=== PATIENT | female | born 1970 | race Caucasian/White ===

== ENCOUNTER 2016-09-04 12:54 | Emergency (ER) | payer MEDICAID ==
[~2016-09-04] VITALS: Ht 165.1 cm; Wt 71.2 kg
[2016-09-04 13:30] VITALS: BP 161/101
[2016-09-04] MEDS ORDERED: DIPHTH,PERTUSS(ACELL),TET TOX 0.5 ML DISP.SYRIN. VAX IM ONE (13:30)
[2016-09-04 13:44] LABS: BASO % 0 % (0-3); EOS % 1 % (0-3); HEMATOCRIT 38.5 % (36.0-47.0); LYMPH # 2.2 x10^3/uL (1.0-4.8); LYMPH % 35 % (24-48); MEAN CORPUSCULAR HEMOGLOBIN 31 pg (25-35); MEAN CORPUSCULAR HGB CONC 34 g/dL (31-37); MEAN CORPUSCULAR VOLUME 91 fL (79-100); MONO % 8 % (0-9); NEUT % 56 % (31-73); PLATELET COUNT 146 x10^3/uL (140-400); RED BLOOD COUNT 4.22 x10^6/uL (3.50-5.40); RED CELL DISTRIBUTION WIDTH 13.1 % (11.5-14.5); WHITE BLOOD COUNT 6.1 x10^3/uL (4.0-11.0)
[2016-09-04 13:49] LABS: CALCIUM 8.9 mg/dL (8.5-10.1); CREATININE 0.8 mg/dL (0.6-1.0); GFR 77.2; POTASSIUM 4.1 mmol/L (3.5-5.1)
[2016-09-04 13:53] LABS: ALBUMIN 3.7 g/dL (3.4-5.0); DIRECT BILIRUBIN 0.1 mg/dL (0.0-0.2); MAGNESIUM 1.9 mg/dL (1.8-2.4); TOTAL BILIRUBIN 0.2 mg/dL (0.2-1.0); TOTAL PROTEIN 7.5 g/dL (6.4-8.2)
[2016-09-04 14:00] LABS: CKMB INDEX 0.9 % (0-4)
--- NOTE | 2016-09-04 14:05 | RAD ---
Chest, 2 views, 09/04/2016: History: Shortness of breath, chest pain The heart size and pulmonary vascularity are normal. No pulmonary infiltrates are seen. There is no evidence of pleural fluid. IMPRESSION: No acute cardiopulmonary abnormality is detected.
--- NOTE | 2016-09-04 14:24 | PHYS DOC ---
Past Medical History Past Medical History: Hepatitis, Other Additional Past Medical Histor: hep c Past Surgical History: Appendectomy, Alcohol Use: None Drug Use: Methamphetamine Adult General Chief Complaint Chief Complaint: CHEST PAIN HPI HPI Patient is a 46 year old female brought to the ED by his significant other. The patient states that she had been using IV methamphetamine up until 2 days ago. She quit 2 days ago and believes she is having some withdrawal symptoms. She had plans to enter a treatment program and they are requesting that she be seen for medical clearance because of her symptoms. The patient feels anxious and her heart races at times. When her heart races, she feels short of air, also when she walks up stairs sometimes. She has had sticking pains in the left side of her chest and in her back sometimes worse with breathing. She's also had a generalized chest heaviness off and on for 1-2 days but mostly constant. She does smoke cigarettes. She's had no fever or chills. Not much cough. No nausea or diaphoresis. PCP none Review of Systems Review of Systems Constitutional: Denies fever or chills [] Eyes: Denies change in visual acuity, redness, or eye pain [] HENT: Denies nasal congestion or sore throat [] Respiratory: As in history of present illness Cardiovascular: As in history of present illness GI: Denies abdominal pain, nausea, vomiting, bloody stools or diarrhea [] : Denies dysuria or hematuria , denies Musculoskeletal: Denies back pain or joint pain [] Integument: Denies rash or skin lesions [] Neurologic: Denies headache, focal weakness or sensory changes [] Current Medications Current Medications Current Medications Medications (Trade) Dose Ordered Sig/Mckenzie Start Time Stop Time Status Last Admin Dose Admin Diphtheria/ Tetanus/Acell Pertussis (Boostrix) 0.5 ml ONCE ONCE 09/04/16 13:30 09/04/16 13:32 DC Allergies Allergies Allergies Coded Allergies Type Severity Reaction Last Updated Verified No Known Drug Allergies 09/04/16 No Physical Exam Physical Exam Constitutional: Well developed, well nourished, no acute distress, non-toxic appearance. Alert, mentating normally, does appear slightly anxious but not overly so. HENT: Normocephalic, atraumatic, bilateral external ears normal, nose normal. [] Eyes: conjunctiva normal, no discharge. [] Neck: Normal range of motion, no stridor. [] Cardiovascular:Heart rate regular rhythm, no murmur [] Lungs & Thorax: Bilateral breath sounds clear to auscultation , good bilateral equal breath sounds present Skin: Warm, dry, no erythema, no rash. [] Extremities: No tenderness, no cyanosis, no clubbing, ROM intact, no edema. There are recent venipuncture sites in both antecubital and forearms, none appear to have cellulitis or infection Neurologic: Alert and oriented X 3, normal motor function, normal sensory function, no focal deficits noted. [] Current Patient Data Vital Signs Vital Signs Date Time Temp Pulse Resp B/P Pulse Ox O2 Delivery O2 Flow Rate FiO2 09/04/16 13:00 97.7 84 18 145/100 98 Room Air 97.7 Lab Values Laboratory Tests Test 09/04/16 13:15 White Blood Count 6.1x10^3/uL (4.0-11.0) Red Blood Count 4.22x10^6/uL (3.50-5.40) Hemoglobin 13.0g/dL (12.0-15.5) Hematocrit 38.5% (36.0-47.0) Mean Corpuscular Volume 91fL (79-100) Mean Corpuscular Hemoglobin 31pg (25-35) Mean Corpuscular Hemoglobin Concent 34g/dL (31-37) Red Cell Distribution Width 13.1% (11.5-14.5) Platelet Count 146x10^3/uL (140-400) Neutrophils (%) (Auto) 56% (31-73) Lymphocytes (%) (Auto) 35% (24-48) Monocytes (%) (Auto) 8% (0-9) Eosinophils (%) (Auto) 1% (0-3) Basophils (%) (Auto) 0% (0-3) Neutrophils # (Auto) 3.4x10^3uL (1.8-7.7) Lymphocytes # (Auto) 2.2x10^3/uL (1.0-4.8) Monocytes # (Auto) 0.5x10^3/uL (0.0-1.1) Eosinophils # (Auto) 0.1x10^3/uL (0.0-0.7) Basophils # (Auto) 0.0x10^3/uL (0.0-0.2) D-Dimer (Piedad) < 0.27ug/mlFEU (0.00-0.50) Sodium Level 140mmol/L (136-145) Potassium Level 4.1mmol/L (3.5-5.1) Chloride Level 105mmol/L (98-107) Carbon Dioxide Level 24mmol/L (21-32) Anion Gap 11 (6-14) Blood Urea Nitrogen 12mg/dL (7-20) Creatinine 0.8mg/dL (0.6-1.0) Estimated GFR (Cockcroft-Gault) 77.2 Glucose Level 91mg/dL (70-99) Calcium Level 8.9mg/dL (8.5-10.1) Magnesium Level 1.9mg/dL (1.8-2.4) Total Bilirubin 0.2mg/dL (0.2-1.0) Direct Bilirubin 0.1mg/dL (0.0-0.2) Aspartate Amino Transferase (AST) 26U/L (15-37) Alanine Aminotransferase (ALT) 47U/L (14-59) Alkaline Phosphatase 66U/L (46-116) Creatine Kinase 107U/L (26-192) Creatine Kinase MB (Mass) 1.0ng/mL (0.0-3.6) Creatine Kinase MB Relative Index 0.9% (0-4) Troponin I Quantitative < 0.017ng/mL (0.000-0.055) MH-Wgb-F-Type Natriuretic Peptide 219pg/mL (0-124) H Total Protein 7.5g/dL (6.4-8.2) Albumin 3.7g/dL (3.4-5.0) Laboratory Tests 09/04/16 13:15 Laboratory Tests 09/04/16 13:15 EKG EKG 12-lead EKG read by me. Sinus rhythm. Heart rate 81. There are no rhythm disturbances or intraventricular blocks. There are no acute ST or T wave changes indicative of ischemia or infarction. No STEMI. 1306[] Radiology/Procedures Radiology/Procedures Two-view chest x-ray read by me. No acute cardiopulmonary abnormality. [] Course & Med Decision Making Course & Med Decision Making Pertinent Labs and Imaging studies reviewed. (See chart for details) Labs including cardiac enzymes and d-dimer negative for acute abnormalities. EKG , chest x-ray normal. The patient has a good support system of a significant other who brought her in to the ED. The patient has made contact with a treatment facility and plans to seek treatment for methamphetamine abuse. I gave her medical clearance to do so. [] Dragon Disclaimer Dragon Disclaimer This electronic medical record was generated, in whole or in part, using a voice recognition dictation system. Departure Departure Impression: Primary Impression: Methamphetamine abuse Additional Impression: Anxiety Disposition: 01 HOME, SELF-CARE Condition: STABLE Referrals: UNKNOWN PCP NAME (PCP) Patient Instructions: Anxiety and Panic Attacks, [id number] Additional Instructions: Tests are normal in the emergency department today. As we discussed, your symptoms might be due to to methamphetamine use and withdrawal, and might be partly due to anxiety. You are medically cleared to enter a treatment program. I recommend that you enter a treatment program as soon as possible, as you planned. Problem Qualifiers SHANE NEGRON MD Sep 04, 2016 14:24
--- NOTE | 2016-09-04 15:47 | EKG ---
[facility] [address] [place] [id number] Test Date: 2016-09-04 Test Time: 13:05:44 Pat Name: ALEX BIRMINGHAM Department: Room: Gender: F Program Supervisor: : 1970 Requested By: SHANE NEGRON Order Number: [id number] Reading MD: Claire Delgado Measurements Intervals Levan Rate: 81 P: 52 MS: 156 QRS: 17 QRSD: 82 T: 16 QT: 354 QTc: 412 Interpretive Statements SINUS RHYTHM NORMAL ECG RI6.01 No previous ECG available for comparison Electronically Signed On 09-06-2016 0:34:48 CLAIMS ADMINISTRATOR by Claire Delgado
== END 2016-09-04 14:38 | disposition home or self-care (01) ==
LOC: ER 12:54
DX: F15.10 Other stimulant abuse, uncomplicated (principal); F41.9 Anxiety disorder, unspecified; F17.200 Nicotine dependence, unspecified, uncomplicated; Z86.19 Personal history of other infectious and parasitic diseases; Z90.49 Acquired absence of other specified parts of digestive tract
CPT/HCPCS: 36415; 71020; 80048; 80076; 82553; 83735; 83880; 84484; 85027; 85379; 90471; 90715; 93005; 99285-25